=== PATIENT | female | born 1960 | race Caucasian/White ===

== ENCOUNTER → 2019-02-24 | Outpatient (CLI) | payer SELFPAY | PROVIDERS: Family Provider Family Medicine; Visit Provider Family Medicine | DX: M79.641 Pain in right hand (principal) ==

== ENCOUNTER 2021-01-11 13:30 | Outpatient (CLI) | payer BC, SELFPAY ==
[2021-01-11 13:53] VITALS: BP 134/78; PULSE 72; RESP 18; TEMP 37.1; O2SAT 95; BMI 31.9
[2021-01-11 14:34] VITALS: BP 113/75; PULSE 59; RESP 17; TEMP 36.2; O2SAT 95
[2021-01-11 15:14] VITALS: BP 139/80; PULSE 64; RESP 17; TEMP 36.2; O2SAT 97
== END 2021-01-11 13:31 | disposition home or self-care (01) ==
LOC: OPS 13:31
PROVIDERS: PCP Family Medicine; Visit Provider Physician Assistant
DX: U07.1 COVID-19 (principal)
CPT/HCPCS: 96365

== ENCOUNTER 2021-07-06 15:15 | Outpatient (CLI) | payer BC, SELFPAY ==
--- NOTE | 2021-07-06 15:26 | MM_ITS ---
WS: [id number] BILATERAL 3D TOMOSYNTHESIS DIGITAL SCREENING MAMMOGRAPHY WITH CAD CLINICAL INFORMATION: SCREENING HISTORY: Screening mammogram. COMPARISON: TECHNIQUE: Bilateral CC and MLO views. FINDINGS: Scattered fibroglandular densities bilaterally. Stable lymph nodes along the axillary tail. Dense julio cesar ast tissue upper outer LEFT breast is unchanged since 2017. A few tiny incidental punctate calcificat ions. No suspicious focal mass, asymmetry, calcifications, or architectural distortion. No evidence o f malignancy. MM/[place] [id number] IMPRESSION: BI-RADS: 2-Benign FOLLOW UP: 1 Year Follow-up Recommend return to annual screening mammography.
== END 2021-07-06 15:16 | disposition home or self-care (01) ==
LOC: RADSHAW 15:16
PROVIDERS: PCP Family Medicine; Visit Provider Nurse Practitioner Family
DX: Z12.31 Encounter for screening mammogram for malignant neoplasm of breast (principal)
CPT/HCPCS: 77063; 77067